=== PATIENT | female | born 1980 | race African-American/Black ===

== ENCOUNTER 2018-08-30 12:06 | Emergency (ER) | payer OTHER ==
[2018-08-30] MEDS ORDERED: MORPHINE 4 MG/ML SYR ONE (13:28)
[2018-08-30] MEDS ORDERED: NA CHLORIDE 0.9% 1,000 ML ONE ×2 (13:28→14:33)
[2018-08-30] MEDS ORDERED: ONDANSETRON 4 MG/2 ML VIAL ONE (13:28)
[2018-08-30 13:38] LABS: Absolute Lymphocytes (CBC) 0.6 K/uL (0.7-4.9); Absolute Monocytes 0.7 K/uL (0.1-1.3); Absolute Neutrophil 12.8 K/uL (1.8-8.0); Basophils % 0.8 % (0-1.3); Eosinophils % 0.1 % (0-4.4); Hematocrit 35.7 % (36.0-45.0); MPV 9.3 fL (7.6-11.3); Monocytes % 4.8 % (3.3-12.3); RBC Red Blood Cell Count 3.91 M/uL (3.86-4.86)
[2018-08-30 13:52] LABS: Albumin 3.5 g/dL (3.4-5.0); Bilirubin Direct 0.3 mg/dL (0-0.2); Bilirubin Total 0.9 mg/dL (0.2-1.0); Protein, Total 6.7 g/dL (6.4-8.2)
[2018-08-30 14:36] LABS: Platelet Estimate ADEQ
[2018-08-30 14:37] LABS: Blood Morphology Comment NOT SEEN (NOT SEEN)
--- NOTE | 2018-08-30 15:38 | RAD REPORT ---
EXAM DESCRIPTION: CT - Abdomen Pelvis W Contrast - 08/30/2018 3:20 pm CLINICAL HISTORY: Abdominal pain COMPARISON: none. TECHNIQUE: Computed axial tomography of the abdomen pelvis was obtained. 100 cc Isovue-300 was admin istered intravenously. Oral contrast was not requested which limits evaluation of bowel. All CT scans are performed using dose optimization technique as appropriate and may include automated exposure control or mA/KV adjustment according to patient size. FINDINGS: The liver, spleen, pancreas, adrenal and kidneys appear unremarkable. There is no evidence of diverticulitis. Small amount of ascites is present within the abdomen. Small to moderate amount of ascites is present within the pelvis. Evaluation of the appendix and bowel is limited secondary to the lack of oral contrast. IMPRESSION: Small to moderate amount of ascites. Pelvic ultrasound may be helpful for further evalua tion
--- NOTE | 2018-08-30 15:44 | ER ---
Nurse's Notes [facility] Name: Jose Ugarte Age: 38 yrs Sex: Female : 1980 Arrival Date: 08/30/2018 Time: 12:07 Bed 6 Private MD: Diagnosis: Endometriosis Presentation: 08/30 12:08 Presenting complaint: EMS states: called for a pt complaining of bodyaches, on scene, hj pt was in the floor, refused to get up due to body aches, hx of fibromyalgia, and weakness, generalized; denies fever and chills; denies N/V; BGL- 141; reports abd pain, cramps;. Transition of care: patient was not received from another setting of care. Onset of symptoms was August 30, 2018. Risk Assessment: Do you want to hurt yourself or someone else? Patient reports no desire to harm self or others. Initial Sepsis Screen: Does the patient meet any 2 criteria? No. Patient's initial sepsis screen is negative. Does the patient have a suspected source of infection? No. Patient's initial sepsis screen is negative. Care prior to arrival: None. 12:08 Method Of Arrival: EMS: [facility] 12:08 Acuity: RUPESH 3 hj Triage Assessment: 12:14 General: Appears in no apparent distress. uncomfortable, Behavior is calm, cooperative, hj appropriate for age. Pain: Complains of pain in body. 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 - Social history:: Smoking status: Patient/guardian denies using tobacco, Patient/guardian denies using alcohol, Patient/guardian denies using street drugs, The patient lives with family. - Ebola Screening: : Patient negative for fever greater than or equal to 101.5 degrees Fahrenheit, and additional compatible Ebola Virus Disease symptoms Patient denies exposure to infectious person Patient denies travel to an Ebola-affected area in the 21 days before illness onset. - Family history:: not pertinent, not pertinent. Screenin:14 Abuse screen: Denies threats or abuse. Denies injuries from another. Nutritional hj screening: No deficits noted. Tuberculosis screening: No symptoms or risk factors identified. Fall Risk None identified. Assessment: 13:27 General: Appears in no apparent distress. uncomfortable, Behavior is calm, cooperative, hj appropriate for age. Pain: Complains of pain in abdomen, body. Neuro: Level of Consciousness is awake, alert, obeys commands, Oriented to person, place, time, situation, Appropriate for age. Cardiovascular: Capillary refill < 3 seconds Patient's skin is warm and dry. Respiratory: Airway is patent Respiratory effort is even, unlabored, Respiratory pattern is regular, symmetrical. GI: No signs and/or symptoms were reported involving the gastrointestinal system. : No signs and/or symptoms were reported regarding the genitourinary system. EENT: No signs and/or symptoms were reported regarding the EENT system. Derm: No signs and/or symptoms reported regarding the dermatologic system. Musculoskeletal: No signs and/or symptoms reported regarding the musculoskeletal system. 14:37 Reassessment: Patient and/or family updated on plan of care and expected duration. Pain hj level reassessed. Patient is alert, oriented x 3, equal unlabored respirations, skin warm/dry/pink. awaiting serum pregs;. Vital Signs: 12:13 BP 104 / 77; Pulse 78; Resp 18; Temp 97.7(TE); Pulse Ox 100% on R/A; Weight 56.7 kg; hj Height 5 ft. 10 in. (177.80 cm); 13:30 BP 102 / 68; Pulse 74; Resp 18; Pulse Ox 100% on R/A; hj 14:16 BP 100 / 66; Pulse 75; Resp 18; Pulse Ox 100% on R/A; hj 16:03 BP 105 / 65; Pulse 74; Resp 18; Pulse Ox 100% on R/A; hj 12:13 Body Mass Index 17.94 (56.70 kg, 177.80 cm) ED Course: 12:07 Patient arrived in ED. hj 12:11 Triage completed. hj 12:14 Arm band placed on right wrist. hj 12:14 Patient has correct armband on for positive identification. Bed in low position. Call light in reach. Side rails up X 1. Adult w/ patient. 12:15 Twan Cain RN is Primary Nurse. hj 12:15 Maintain EMS IV. Dressing intact. Good blood return noted. Site clean \T\ dry. Gauge \T\ hj site: 20 g L AC;. 12:52 Chris Mendez MD is Attending Physician. ma2 14:26 Test, Serum Sent. hj 15:04 Radiology exam delayed due to test not completed at this time. vm2 15:[address] via wheelchair. vm2 15:21 CT Abd/Pelvis - W/Contrast In Process Unspecified. EDMS 16:02 No provider procedures requiring assistance completed. IV discontinued, intact, hj bleeding controlled, No redness/swelling at site. Pressure dressing applied. Administered Medications: 13:20 Drug: NS 0.9% 1000 ml Route: IV; Rate: 1 bolus; Site: left antecubital; hj 14:45 Follow up: IV Status: Completed infusion; IV Intake: 1000ml hj 13:20 Drug: morphine 4 mg Route: IVP; Site: left antecubital; hj 13:55 Follow up: Response: No adverse reaction; Pain is decreased hj 13:20 Drug: Zofran 4 mg Route: IVP; Site: left antecubital; hj 13:54 Follow up: Response: No adverse reaction hj 14:17 Drug: NS 0.9% 1000 ml Route: IV; Rate: 1 bolus; Site: left antecubital; hj 16:04 Follow up: IV Status: Completed infusion; IV Intake: 1000ml hj Intake: 14:45 IV: 1000ml; Total: 1000ml. hj 16:04 IV: 1000ml; Total: 2000ml. Outcome: 15:44 Discharge ordered by . ma2 16:02 Discharged to home ambulatory, with family. hj 16:02 Condition: stable 16:02 Discharge instructions given to patient, Instructed on discharge instructions, follow up and referral plans. medication usage, Demonstrated understanding of instructions, follow-up care, medications, Prescriptions given X 2. 16:05 Patient left the ED. Signatures: Dispatcher [employer] EDMI Twan Cain RN RN Chanel Carey [facility] Chris Mendez MD MD [email or web address]
--- NOTE | 2018-08-30 15:44 | EDPHYS ---
Physician Documentation [facility] Name: Jose Ugarte Age: 38 yrs Sex: Female : 1980 Arrival Date: 08/30/2018 Time: 12:07 Bed 6 Private MD: ED Physician Chris Mendez HPI: 08/30 13:19 This 38 yrs old Black Female presents to ER via EMS with complaints of bodyaches, ma2 General Weakness. 13:19 The patient presents with abdominal pain. Onset: The symptoms/episode began/occurred ma2 gradually, 1 day(s) ago. Associated signs and symptoms: Pertinent negatives: nausea and vomiting, blood in stools, constipation, headache, vaginal discharge, vomiting. Severity of pain: At its worst the pain was mild in the emergency department the pain is unchanged. The patient has not experienced similar symptoms in the past. 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 - Social history:: Smoking status: Patient/guardian denies using tobacco, Patient/guardian denies using alcohol, Patient/guardian denies using street drugs, The patient lives with family. - Ebola Screening: : Patient negative for fever greater than or equal to 101.5 degrees Fahrenheit, and additional compatible Ebola Virus Disease symptoms Patient denies exposure to infectious person Patient denies travel to an Ebola-affected area in the 21 days before illness onset. - Family history:: not pertinent, not pertinent. ROS: 13:19 Constitutional: Negative for fever, chills, and weight loss, Cardiovascular: Negative ma2 for chest pain, palpitations, and edema, Respiratory: Negative for shortness of breath, cough, wheezing, and pleuritic chest pain. 13:19 Abdomen/GI: Positive for abdominal pain, Negative for nausea and vomiting, vomiting, constipation, rectal bleeding, flatulence. 13:19 All other systems are negative. Exam: 13:19 Constitutional: This is a well developed, well nourished patient who is awake, alert, ma2 and in no acute distress. Chest/axilla: Normal chest wall appearance and motion. Nontender with no deformity. No lesions are appreciated. Cardiovascular: Regular rate and rhythm with a normal S1 and S2. No gallops, murmurs, or rubs. Normal PMI, no JVD. No pulse deficits. Respiratory: Lungs have equal breath sounds bilaterally, clear to auscultation and percussion. No rales, rhonchi or wheezes noted. No increased work of breathing, no retractions or nasal flaring. Abdomen/GI: Soft, non-tender, with normal bowel sounds. No distension or tympany. No guarding or rebound. No evidence of tenderness throughout. MS/ Extremity: Pulses equal, no cyanosis. Neurovascular intact. Full, normal range of motion. Neuro: Awake and alert, GCS 15, oriented to person, place, time, and situation. Cranial nerves II-XII grossly intact. Motor strength 5/5 in all extremities. Sensory grossly intact. Cerebellar exam normal. Normal gait. Vital Signs: 12:13 BP 104 / 77; Pulse 78; Resp 18; Temp 97.7(TE); Pulse Ox 100% on R/A; Weight 56.7 kg; hj Height 5 ft. 10 in. (177.80 cm); 13:30 BP 102 / 68; Pulse 74; Resp 18; Pulse Ox 100% on R/A; hj 14:16 BP 100 / 66; Pulse 75; Resp 18; Pulse Ox 100% on R/A; hj 16:03 BP 105 / 65; Pulse 74; Resp 18; Pulse Ox 100% on R/A; hj 12:13 Body Mass Index 17.94 (56.70 kg, 177.80 cm) MDM: 12:52 Patient medically screened. 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 14:12 Data reviewed: vital signs, nurses notes. Counseling: I had a detailed discussion with neno the patient and/or guardian regarding: the historical points, exam findings, and any diagnostic results supporting the discharge/admit diagnosis, the presence of at least one elevated blood pressure reading (>120/80) during this emergency department visit, the need for outpatient follow up. Response to treatment: the patient's symptoms have resolved after treatment. 08/30 13:01 Order name: Basic Metabolic Panel; Complete Time: 14:11 ma2 08/30 13:01 Order name: CBC with Diff; Complete Time: 15:22 ma2 08/30 13:01 Order name: Creatinine for Radiology; Complete Time: 14:11 ma2 08/30 13:01 Order name: Hepatic Function; Complete Time: 14:11 ma2 08/30 13:01 Order name: Lipase; Complete Time: 14:11 ma2 08/30 14:17 Order name: Test, Serum; Complete Time: 15:22 ma2 08/30 13:01 Order name: Urine Dipstick-Ancillary (obtain specimen); Complete Time: 16:02 ma2 08/30 13:01 Order name: IV Saline Lock; Complete Time: 13:13 ma2 08/30 14:17 Order name: CT Abd/Pelvis - W/Contrast; Complete Time: 15:43 ma2 08/30 14:37 Order name: Manual Differential; Complete Time: 15:22 EDMS 08/30 13:01 Order name: Labs collected and sent; Complete Time: 13:27 ma2 Administered Medications: 13:20 Drug: NS 0.9% 1000 ml Route: IV; Rate: 1 bolus; Site: left antecubital; hj 14:45 Follow up: IV Status: Completed infusion; IV Intake: 1000ml hj 13:20 Drug: morphine 4 mg Route: IVP; Site: left antecubital; hj 13:55 Follow up: Response: No adverse reaction; Pain is decreased hj 13:20 Drug: Zofran 4 mg Route: IVP; Site: left antecubital; hj 13:54 Follow up: Response: No adverse reaction hj 14:17 Drug: NS 0.9% 1000 ml Route: IV; Rate: 1 bolus; Site: left antecubital; hj 16:04 Follow up: IV Status: Completed infusion; IV Intake: 1000ml hj Disposition: 08/30/18 15:44 Discharged to Home. Impression: Endometriosis. - Condition is Stable. - Prescriptions for Tylenol- Codeine #3 300-30 mg Oral Tablet - take 2 tablet by ORAL route every 6 hours As needed; 30 tablet. Zofran 4 mg Oral Tablet - take 1 tablet by ORAL route every 12 hours As needed; 20 tablet. - Medication Reconciliation Form, Thank You Letter, Antibiotic Education, Prescription Opioid Use form. - Follow up: Private Physician; When: Tomorrow; Reason: Continuance of care. Signatures: Dispatcher [employer] EDMS Twan Cain RN RN hj Alzahri, Mohammad, MD MD ma2 Corrections: (The following items were deleted from the chart) 16:05 15:44 08/30/2018 15:44 Discharged to Home. Impression: Endometriosis. Condition is hj Stable. Prescriptions for Tylenol-Codeine #3 300-30 mg Oral Tablet - take 2 tablet by ORAL route every 6 hours As needed; 30 tablet, Zofran 4 mg Oral Tablet - take 1 tablet by ORAL route every 12 hours As needed; 20 tablet. and Forms are Medication Reconciliation Form, Thank You Letter, Antibiotic Education, Prescription Opioid Use. Follow up: Private Physician; When: Tomorrow; Reason: Continuance of care. ma2
== END 2018-08-30 16:05 | disposition home or self-care (01) ==
LOC: ER 12:06
DX: N80.9 Endometriosis, unspecified (principal); F41.9 Anxiety disorder, unspecified; F32.9 Major depressive disorder, single episode, unspecified
CPT/HCPCS: 36415; 74177; 80048; 80076; 83690; 84703; 85025; 99284; J2405; J7030; Q9967

== ENCOUNTER 2018-09-26 12:31 | Emergency (ER) | payer OTHER ==
--- OUTSIDE RECORDS SUMMARY | 2018-09-26 12:36 | XMS REPORT ---
:1980 [facility] Address [address] [place] [address] Dr. Sykes [address] [place] [id number] Care Team Providers Name Role Phone Unavailable Unavailable Unavailable Problems This patient has no known problems. Allergies, Adverse Reactions, Alerts This patient has no known allergies or adverse reactions. Medications This patient has no known medications. Encounters Start End Encounter Admission Attending Care Care Encounter Date/Time Date/Time Type Type Clinicians Facility Department ID 2018-09-13 2018-09-13 Outpatient [id number] 11:16:00 11:16:00
--- NOTE | 2018-09-26 12:58 | EDPHYS ---
Physician Documentation [facility] Name: Jose Ugarte Age: 38 yrs Sex: Female : 1980 Arrival Date: 09/26/2018 Time: 12:44 Bed 20 Private MD: ED Physician Chris Mendez HPI: 09/26 12:55 This 38 yrs old Black Female presents to ER via EMS with complaints of Abdominal Pain. ma2 12:55 The patient presents with abdominal pain. Onset: The symptoms/episode began/occurred ma2 gradually, 2 year(s) ago. Associated signs and symptoms: Pertinent negatives: nausea and vomiting, chest pain, constipation, vaginal discharge, vomiting. Severity of pain: At its worst the pain was moderate in the emergency department the pain is unchanged. The patient has experienced similar episodes in the past. 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 - Social history:: Smoking status: Patient uses tobacco products, smokes one-half pack cigarettes per day, Patient/guardian denies using alcohol, street drugs, The patient lives with family. - Ebola Screening: : Patient negative for fever greater than or equal to 101.5 degrees Fahrenheit, and additional compatible Ebola Virus Disease symptoms. - Family history:: not pertinent. ROS: 12:55 Constitutional: Negative for fever, chills, and weight loss, Cardiovascular: Negative ma2 for chest pain, palpitations, and edema, Respiratory: Negative for shortness of breath, cough, wheezing, and pleuritic chest pain. 12:55 Abdomen/GI: Positive for abdominal pain, Negative for nausea, abdominal distension. 12:55 All other systems are negative. Exam: 12:55 Constitutional: This is a well developed, well nourished patient who is awake, alert, ma2 and in no acute distress. Chest/axilla: Normal chest wall appearance and motion. Nontender with no deformity. No lesions are appreciated. Cardiovascular: Regular rate and rhythm with a normal S1 and S2. No gallops, murmurs, or rubs. Normal PMI, no JVD. No pulse deficits. Respiratory: Lungs have equal breath sounds bilaterally, clear to auscultation and percussion. No rales, rhonchi or wheezes noted. No increased work of breathing, no retractions or nasal flaring. Abdomen/GI: Soft, non-tender, with normal bowel sounds. No distension or tympany. No guarding or rebound. No evidence of tenderness throughout. MS/ Extremity: Pulses equal, no cyanosis. Neurovascular intact. Full, normal range of motion. Neuro: Awake and alert, GCS 15, oriented to person, place, time, and situation. Cranial nerves II-XII grossly intact. Motor strength 5/5 in all extremities. Sensory grossly intact. Cerebellar exam normal. Normal gait. Vital Signs: 12:37 BP 109 / 62; Pulse 62; Resp 17; Temp 98.4(O); Pulse Ox 100% on R/A; Weight 54.43 kg; rb1 Height 5 ft. 10 in. (177.80 cm); Pain 10/10; 13:35 BP 121 / 76; Pulse 65; Resp 16; Temp 98.1(O); Pulse Ox 99% ; Pain 10/10; rb1 14:30 BP 112 / 71; Pulse 65; Resp 15; Temp 98.2(O); Pulse Ox 100% on R/A; Pain 7/10; rb1 12:37 Body Mass Index 17.22 (54.43 kg, 177.80 cm) rb1 MDM: 12:44 Patient medically screened. ma2 12:55 Differential diagnosis: endometriosis, declined iv or blood work, or urine tests, she ma2 is been here before and gets this pain with periods every month. Data reviewed: vital signs, nurses notes. Counseling: I had a detailed discussion with the patient and/or guardian regarding: the historical points, exam findings, and any diagnostic results supporting the discharge/admit diagnosis, the presence of at least one elevated blood pressure reading (>120/80) during this emergency department visit, the need for outpatient follow up. Response to treatment: the patient's symptoms have resolved after treatment. Administered Medications: 13:50 Drug: Ativan 2 mg Route: IM; Site: right gluteus; rb1 14:30 Follow up: Response: No adverse reaction; Pain is decreased rb1 13:51 Drug: morphine 4 mg Route: IM; Site: left gluteus; rb1 14:30 Follow up: Response: No adverse reaction; Pain is decreased rb1 13:52 Not Given (cancelled by provider): Zofran 4 mg PO once; odt rb1 Disposition: 09/26/18 12:57 Discharged to Home. Impression: Anxiety disorder, unspecified, Endometriosis. - Condition is Stable. - Discharge Instructions: Endometriosis, Generalized Anxiety Disorder. - Medication Reconciliation Form, Thank You Letter, Antibiotic Education, Prescription Opioid Use form. - Follow up: Private Physician; When: Tomorrow; Reason: Continuance of care. Signatures: Ludmila Tripathi RN RN rb1 Alzahri, Mohammad, MD MD ma2 Corrections: (The following items were deleted from the chart) 12:54 12:37 Allergies: No Known Allergies; rb1 rb1 14:42 12:57 09/26/2018 12:57 Discharged to Home. Impression: Anxiety disorder, unspecified; rb1 Endometriosis. Condition is Stable. Forms are Medication Reconciliation Form, Thank You Letter, Antibiotic Education, Prescription Opioid Use. Follow up: Private Physician; When: Tomorrow; Reason: Continuance of care. ma2
--- NOTE | 2018-09-26 12:58 | ER ---
Nurse's Notes [facility] Name: Jose Ugarte Age: 38 yrs Sex: Female : 1980 Arrival Date: 09/26/2018 Time: 12:44 Bed 20 Private MD: Diagnosis: Anxiety disorder, unspecified;Endometriosis Presentation: 09/26 12:37 Presenting complaint: EMS states: Pt. had diagnostic surgery on her abdomen on September [id number] and was diagnosed with Stage IV Endometriosis. Pain is 10/10. Pt. took tylenol #3 at 0900 and Brilliant 0500. EMS administered Zofran 4 mg IM x 1 right deltoid and Toradol 60 mg IM x 1, right vastus lacteus. Two missed IV attempts on EMS. BP 120/80, P 60-70's. Started menstrual cycle yesterday. Home medications Clonopin and Control. Transition of care: patient was not received from another setting of care. Onset of symptoms was September 26, 2018. Risk Assessment: Do you want to hurt yourself or someone else? Patient reports no desire to harm self or others. Initial Sepsis Screen: Does the patient meet any 2 criteria? No. Patient's initial sepsis screen is negative. Initial Sepsis Screen: Does the patient have a suspected source of infection? No. Patient's initial sepsis screen is negative. Care prior to arrival: Medication(s) given: zofran 4 mg, Toradol 60 mg, Tylenol #3, and a Brilliant. 12:37 Method Of Arrival: EMS: [facility] rb1 12:37 Acuity: RUPESH 3 rb1 Triage Assessment: 12:37 GI: Abdomen is flat. rb1 12:37 General: Appears uncomfortable, slender, Behavior is anxious. Pain: Complains of pain rb1 in abdomen Pain currently is 10 out of 10 on a pain scale. 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 - Social history:: Smoking status: Patient uses tobacco products, smokes one-half pack cigarettes per day, Patient/guardian denies using alcohol, street drugs, The patient lives with family. - Ebola Screening: : Patient negative for fever greater than or equal to 101.5 degrees Fahrenheit, and additional compatible Ebola Virus Disease symptoms. - Family history:: not pertinent. Screenin:37 Abuse screen: Denies threats or abuse. Nutritional screening: No deficits noted. rb1 Tuberculosis screening: No symptoms or risk factors identified. Fall Risk None identified. Assessment: 12:37 General: See triage assessment. rb1 12:37 GI: Bowel sounds present X 4 quads. Abd is soft Abdomen is tender to palpation X 4 rb1 quads. 13:20 Reassessment: I tried to call [facility] to confirm what medications were given rb1 because the pt. reported receiving a third injection in the left arm but there was no answer. Provider notified. 13:30 Reassessment: Patient appears in no apparent distress at this time. Patient and/or rb1 family updated on plan of care and expected duration. Pain level reassessed. Patient is alert, oriented x 3, equal unlabored respirations, skin warm/dry/pink. 13:45 Reassessment: Received information regarding the third shot, it was Toradol 30 mg in rb1 the left arm. 13:53 Reassessment: Discharge pending due to shot time. rb1 14:30 Reassessment: Patient appears in no apparent distress at this time. Patient and/or rb1 family updated on plan of care and expected duration. Pain level reassessed. Patient is alert, oriented x 3, equal unlabored respirations, skin warm/dry/pink. Family at bedside. Vital Signs: 12:37 BP 109 / 62; Pulse 62; Resp 17; Temp 98.4(O); Pulse Ox 100% on R/A; Weight 54.43 kg; rb1 Height 5 ft. 10 in. (177.80 cm); Pain 10/10; 13:35 BP 121 / 76; Pulse 65; Resp 16; Temp 98.1(O); Pulse Ox 99% ; Pain 10/10; rb1 14:30 BP 112 / 71; Pulse 65; Resp 15; Temp 98.2(O); Pulse Ox 100% on R/A; Pain 7/10; rb1 12:37 Body Mass Index 17.22 (54.43 kg, 177.80 cm) rb1 ED Course: 12:37 Patient has correct armband on for positive identification. Bed in low position. Call rb1 light in reach. Side rails up X 1. Pulse ox on. NIBP on. Warm blanket given. 12:37 Arm band placed on right wrist. rb1 12:44 Patient arrived in ED. rb1 12:44 Chris Mendez MD is Attending Physician. ma2 12:51 Triage completed. rb1 13:14 Ludmila Tripathi, RN is Primary Nurse. rb1 14:30 No provider procedures requiring assistance completed. Patient did not have IV access rb1 during this emergency room visit. Administered Medications: 13:50 Drug: Ativan 2 mg Route: IM; Site: right gluteus; rb1 14:30 Follow up: Response: No adverse reaction; Pain is decreased rb1 13:51 Drug: morphine 4 mg Route: IM; Site: left gluteus; rb1 14:30 Follow up: Response: No adverse reaction; Pain is decreased rb1 13:52 Not Given (cancelled by provider): Zofran 4 mg PO once; odt rb1 Outcome: 12:57 Discharge ordered by . ma2 14:42 Patient left the ED. rb1 14:42 Discharged to home ambulatory, with family. rb1 14:42 Condition: stable 14:42 Discharge instructions given to patient, Instructed on discharge instructions, follow up and referral plans. Demonstrated understanding of instructions, follow-up care. Signatures: Ludmila Tripathi RN RN [facility] Chris Mendez MD MD ma2 Corrections: (The following items were deleted from the chart) 12:54 12:37 Allergies: No Known Allergies; rb1 rb1
[2018-09-26] MEDS ORDERED: LORazepam 2 MG/ML VIAL ONE (13:32)
[2018-09-26] MEDS ORDERED: MORPHINE 4 MG/ML SYR ONE (13:33)
[2018-09-26] MEDS ORDERED: ONDANSETRON 4 MG (ODT) TAB ONE (13:33)
== END 2018-09-26 14:42 | disposition home or self-care (01) ==
LOC: ER 12:31
DX: N80.9 Endometriosis, unspecified (principal); F41.9 Anxiety disorder, unspecified; F32.9 Major depressive disorder, single episode, unspecified; F17.210 Nicotine dependence, cigarettes, uncomplicated
CPT/HCPCS: 96372; 99284

== ENCOUNTER 2018-09-27 15:26 | Emergency (ER) | payer OTHER ==
[2018-09-27] MEDS ORDERED: NA CHLORIDE 0.9% 1,000 ML ONE (16:40)
[2018-09-27] MEDS ORDERED: ONDANSETRON 4 MG/2 ML VIAL ONE (16:40)
[2018-09-27] MEDS ORDERED: ACETAMINOPHEN 500 MG TAB ONE (16:40)
[2018-09-27] MEDS ORDERED: MORPHINE 4 MG/ML SYR ONE ×2 (16:40→17:13)
[2018-09-27 16:53] LABS: Absolute Lymphocytes (CBC) 1.1 K/uL (0.7-4.9); Absolute Monocytes 0.8 K/uL (0.1-1.3); Absolute Neutrophil 10.9 K/uL (1.8-8.0); Basophils % 0.3 % (0-1.3); Hematocrit 38.9 % (36.0-45.0); Lymphocytes % 8.5 % (15.3-44.8); MPV 9.3 fL (7.6-11.3); Monocytes % 5.9 % (3.3-12.3); RBC Red Blood Cell Count 4.25 M/uL (3.86-4.86)
[2018-09-27 17:14] LABS: ALT/SGPT 10 U/L (12-78); AST/SGOT 14 U/L (15-37); Albumin 3.1 g/dL (3.4-5.0); Alkaline Phosphatase 57 U/L (45-117); BUN Blood Urea Nitrogen 12 mg/dL (7-18); Bicarbonate 25 mmol/L (21-32); Bilirubin Direct 0.2 mg/dL (0-0.2); Bilirubin Total 0.8 mg/dL (0.2-1.0); Glucose Level 107 mg/dL (74-106); Lipase 116 U/L (73-393); Potassium 3.5 mmol/L (3.5-5.1); Protein, Total 7.1 g/dL (6.4-8.2); Sodium Level 137 mmol/L (136-145)
[2018-09-27 17:21] LABS: Blood Morphology Comment NOT SEEN (NOT SEEN); Platelet Estimate ADEQ; Urine White Blood Cell Casts OK
[2018-09-27 17:46] LABS: Urine Blood 3+ (NEG); Urine Glucose NEGATIVE (NEG); Urine Protein 2+ (NEG); Urine Specific Gravity 1.025 (1.005-1.030)
--- NOTE | 2018-09-27 18:58 | EDPHYS ---
Physician Documentation [facility] Name: Jose Ugarte Age: 38 yrs Sex: Female : 1980 Arrival Date: 09/27/2018 Time: 15:43 Bed 27 Private MD: ED Physician Berny Byrnes HPI: 09/27 17:41 This 38 yrs old Black Female presents to ER via EMS with complaints of Abdominal Pain. pm1 17:41 The patient presents with abdominal pain that is diffuse. Onset: The symptoms/episode pm1 began/occurred 2 years of abdominal pain. Worse the past few days. The symptoms do not radiate. Associated signs and symptoms: Pertinent positives: fever, Burning with urination, Pertinent negatives: chest pain, headache, shortness of breath, vaginal discharge. The symptoms are described as burning. Modifying factors: The symptoms are alleviated by nothing, the symptoms are aggravated by urinating. Severity of pain: in the emergency department the pain is actually worse. The patient has experienced similar episodes in the past, multiple times, chronically. The patient has been recently seen at the [facility], yesterday, same complaint. 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 - Social history:: Smoking status: Patient uses tobacco products. - Ebola Screening: : Patient negative for fever greater than or equal to 101.5 degrees Fahrenheit, and additional compatible Ebola Virus Disease symptoms Patient denies exposure to infectious person Patient denies travel to an Ebola-affected area in the 21 days before illness onset No symptoms or risks identified at this time. ROS: 17:41 Constitutional: Negative for fever, chills, and weight loss, Eyes: Negative for injury, pm1 pain, redness, and discharge, ENT: Negative for injury, pain, and discharge, Neck: Negative for injury, pain, and swelling, Cardiovascular: Negative for chest pain, palpitations, and edema, Respiratory: Negative for shortness of breath, cough, wheezing, and pleuritic chest pain. 17:41 Back: Negative for injury and pain. 17:41 MS/Extremity: Negative for injury and deformity, Skin: Negative for injury, rash, and discoloration, Neuro: Negative for headache, weakness, numbness, tingling, and seizure. 17:41 Abdomen/GI: Positive for abdominal pain, Negative for nausea, vomiting, and diarrhea. 17:41 : Positive for burning with urination. Exam: 17:41 Constitutional: This is a well developed, well nourished patient who is awake, alert, pm1 and in no acute distress. Head/Face: Normocephalic, atraumatic. Eyes: Pupils equal round and reactive to light, extra-ocular motions intact. Lids and lashes normal. Conjunctiva and sclera are non-icteric and not injected. Cornea within normal limits. Periorbital areas with no swelling, redness, or edema. ENT: Nares patent. No nasal discharge, no septal abnormalities noted. Tympanic membranes are normal and external auditory canals are clear. Oropharynx with no redness, swelling, or masses, exudates, or evidence of obstruction, uvula midline. Mucous membranes moist. Neck: Trachea midline, no thyromegaly or masses palpated, and no cervical lymphadenopathy. Supple, full range of motion without nuchal rigidity, or vertebral point tenderness. No Meningismus. Chest/axilla: Normal chest wall appearance and motion. Nontender with no deformity. No lesions are appreciated. Cardiovascular: Regular rate and rhythm with a normal S1 and S2. No gallops, murmurs, or rubs. Normal PMI, no JVD. No pulse deficits. Respiratory: Lungs have equal breath sounds bilaterally, clear to auscultation and percussion. No rales, rhonchi or wheezes noted. No increased work of breathing, no retractions or nasal flaring. 17:41 Back: No spinal tenderness. No costovertebral tenderness. Full range of motion. Skin: Warm, dry with normal turgor. Normal color with no rashes, no lesions, and no evidence of cellulitis. MS/ Extremity: Pulses equal, no cyanosis. Neurovascular intact. Full, normal range of motion. 17:41 Abdomen/GI: Inspection: abdomen appears normal, Bowel sounds: normal, Palpation: soft, mild abdominal tenderness, in the abdomen diffusely, mass, is not appreciated, rebound tenderness, is not appreciated. 17:41 Neuro: Orientation: is normal, Motor: is normal, moves all fours. Vital Signs: 15:47 BP 122 / 83 RA (auto/reg); Pulse 95; Temp 101.1; Pulse Ox 99% ; Pain 10/10; jp3 16:30 BP 131 / 90; Pulse 94; Resp 16; Pulse Ox 99% ; rv 17:00 BP 124 / 98; Pulse 102; Resp 17; Temp 99.1; Pulse Ox 100% ; rv 17:20 Temp 99.1(O); rv 18:00 BP 126 / 88; Pulse 96; Resp 18; Pulse Ox 99% ; rv 19:00 BP 115 / 81; Pulse 91; Resp 18; Pulse Ox 98% ; rv 19:45 BP 121 / 90; Pulse 97; Resp 15; Temp 99; Pulse Ox 99% ; rv MDM: 16:05 Patient medically screened. [facility] 17:45 Data reviewed: vital signs. Data interpreted: Pulse oximetry: on room air is 100 %. pm1 Interpretation: normal. 18:55 Counseling: I had a detailed discussion with the patient and/or guardian regarding: the pm1 historical points, exam findings, and any diagnostic results supporting the discharge/admit diagnosis, lab results, radiology results, the need for outpatient follow up, to return to the emergency department if symptoms worsen or persist or if there are any questions or concerns that arise at home. 09/27 16:12 Order name: Basic Metabolic Panel; Complete Time: 17:40 pm1 09/27 16:12 Order name: CBC with Diff; Complete Time: 17:40 pm1 09/27 16:12 Order name: Creatinine for Radiology; Complete Time: 17:45 pm1 09/27 16:12 Order name: Hepatic Function; Complete Time: 17:40 pm1 09/27 16:12 Order name: Lipase; Complete Time: 17:40 pm1 09/27 16:12 Order name: Urine Microscopic Only pm09/27 16:12 Order name: CT Abd/Pelvis - W/Contrast: IV contrast only pm09/27 17:02 Order name: CBC Smear Scan; Complete Time: 17:40 EDMS 09/27 17:13 Order name: Urine Dipstick--Ancillary (enter results) 09/27 17:13 Order name: Urine --Ancillary (enter results) 09/27 17:15 Order name: Urine Dipstick-Ancillary; Complete Time: 17:48 EDDC 09/27 17:15 Order name: Urine --Ancillary; Complete Time: 17:48 EDDC 09/27 19:16 Order name: Urine Culture [facility] 09/27 16:12 Order name: IV Saline Lock; Complete Time: 17:22 pm1 09/27 16:12 Order name: Labs collected and sent; Complete Time: 17:22 pm1 09/27 16:12 Order name: Urine Dipstick-Ancillary (obtain specimen); Complete Time: 17:22 pm1 09/27 16:12 Order name: Urine Test (obtain specimen); Complete Time: 17:31 pm1 Administered Medications: 16:15 Drug: Tylenol 1000 mg Route: PO; rv 17:20 Follow up: Temp 99.1 Oral; Response: Temperature is decreased rv 16:28 Drug: Zofran 4 mg Route: IVP; Site: left forearm; rv 17:21 Follow up: Response: No adverse reaction rv 16:30 Drug: NS 0.9% 1000 ml Route: IV; Rate: 1000 ml; Site: left forearm; rv 17:21 Follow up: IV Status: Completed infusion; IV Intake: 1000ml rv 16:30 Drug: morphine 4 mg Route: IVP; Site: left forearm; rv 17:02 Follow up: Response: Pain is unchanged, physician notified rv 17:10 Drug: morphine 4 mg Route: IVP; Site: left forearm; rv 19:54 Follow up: Response: Pain is unchanged, physician notified rv 19:20 Drug: Rocephin 1 grams Route: IV; Rate: calculated rate; Site: left forearm; rv 19:54 Follow up: IV Status: Completed infusion rv 19:30 Drug: fentaNYL (PF) 25 mcg Route: IVP; Site: left forearm; rv 19:55 Follow up: Response: Medication administered at discharge. rv Disposition: 09/28 07:08 Co-signature as Attending Physician, Berny HERNANDEZ I agree with the assessment and gomez plan of care. Disposition: 09/27/18 18:57 Discharged to Home. Impression: Unspecified abdominal pain, Urinary tract infection, site not specified. - Condition is Stable. - Discharge Instructions: Abdominal Pain, Adult, Urinary Tract Infection, Adult. - Prescriptions for Bactrim DS 800- 160 mg Oral Tablet - take 1 tablet by ORAL route every 12 hours for 10 days; 20 tablet. Tylenol- Codeine #3 300-30 mg Oral Tablet - take 2 tablets by ORAL route every 6 hours As needed; 20 tablet. - Medication Reconciliation Form, Thank You Letter, Antibiotic Education, Prescription Opioid Use, Work release form, Family Work Release form. - Follow up: Emergency Department; When: As needed; Reason: Worsening of condition. Follow up: Private Physician; When: 2 - 3 days; Reason: Recheck today's complaints, Continuance of care, Re-evaluation by your physician. - Problem is new. - Symptoms have improved. Signatures: Dispatcher [employer] EDMS Berny Byrnes, Rich Martínez MD, cha, NP DIRECTOR CLINICAL PHARMACOLOGY pm1 Freddy Calderon RN RN rv Brissa Duncan RN RN ls4 Corrections: (The following items were deleted from the chart) 09/27 19:59 18:57 09/27/2018 18:57 Discharged to Home. Impression: Unspecified abdominal pain; rv Urinary tract infection, site not specified. Condition is Stable. Forms are Medication Reconciliation Form, Thank You Letter, Antibiotic Education, Prescription Opioid Use. Follow up: Emergency Department; When: As needed; Reason: Worsening of condition. Follow up: Private Physician; When: 2 - 3 days; Reason: Recheck today's complaints, Continuance of care, Re-evaluation by your physician. Problem is new. Symptoms have improved. pm1
--- NOTE | 2018-09-27 18:58 | ER ---
Nurse's Notes [facility] Name: Jose Ugarte Age: 38 yrs Sex: Female : 1980 Arrival Date: 09/27/2018 Time: 15:43 Bed 27 Private MD: Diagnosis: Unspecified abdominal pain;Urinary tract infection, site not specified Presentation: 09/27 15:52 Presenting complaint: EMS states: Pt has abdominal pain, 10/10 and nausea. has been ls4 seen a few times over the last few days for same. Pt is febrile. Transition of care: patient was not received from another setting of care. Onset of symptoms was September 25, 2018 at 08:00. Risk Assessment: Do you want to hurt yourself or someone else? Patient reports no desire to harm self or others. Initial Sepsis Screen: Does the patient meet any 2 criteria? No. Patient's initial sepsis screen is negative. Does the patient have a suspected source of infection? No. Patient's initial sepsis screen is negative. Care prior to arrival: Medication(s) given: Normal saline infusion, 250 IV initiated. 20 GA. 15:52 Method Of Arrival: EMS: [facility] 4 15:52 Acuity: RUPESH 3 ls4 Triage Assessment: 15:56 General: Appears uncomfortable, Behavior is calm, cooperative, flat. 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 - Social history:: Smoking status: Patient uses tobacco products. - Ebola Screening: : Patient negative for fever greater than or equal to 101.5 degrees Fahrenheit, and additional compatible Ebola Virus Disease symptoms Patient denies exposure to infectious person Patient denies travel to an Ebola-affected area in the 21 days before illness onset No symptoms or risks identified at this time. Screenin:51 Abuse screen: Denies threats or abuse. Denies injuries from another. Nutritional rv screening: No deficits noted. Tuberculosis screening: No symptoms or risk factors identified. Fall Risk None identified. Assessment: 16:30 General: Appears in no apparent distress. uncomfortable, Behavior is cooperative, rv agitated. Pain: Complains of pain in abdomen Pain currently is 10 out of 10 on a pain scale. 16:30 Pain: Quality of pain is described as crampy. Neuro: Cardiovascular: Patient's skin is rv warm and dry. Respiratory: Airway is patent. GI: Bowel sounds present X 4 quads. Abd is soft and non tender X 4 quads. : No signs and/or symptoms were reported regarding the genitourinary system. EENT: No signs and/or symptoms were reported regarding the EENT system. Derm: Skin is intact. Musculoskeletal: No signs and/or symptoms reported regarding the musculoskeletal system. 17:00 Reassessment: Patient appears in no apparent distress at this time. No changes from rv previously documented assessment. Patient and/or family updated on plan of care and expected duration. Pain level reassessed. Patient is alert, oriented x 3, equal unlabored respirations, skin warm/dry/pink. REFERRED TO KRISTY CARNES ABOUT THE PAIN. GIVEN ANOTHER DOSE OF MORPHINE. Vital Signs: 15:47 BP 122 / 83 RA (auto/reg); Pulse 95; Temp 101.1; Pulse Ox 99% ; Pain 10/10; jp3 16:30 BP 131 / 90; Pulse 94; Resp 16; Pulse Ox 99% ; rv 17:00 BP 124 / 98; Pulse 102; Resp 17; Temp 99.1; Pulse Ox 100% ; rv 17:20 Temp 99.1(O); rv 18:00 BP 126 / 88; Pulse 96; Resp 18; Pulse Ox 99% ; rv 19:00 BP 115 / 81; Pulse 91; Resp 18; Pulse Ox 98% ; rv 19:45 BP 121 / 90; Pulse 97; Resp 15; Temp 99; Pulse Ox 99% ; rv ED Course: 15:43 Patient arrived in ED. ls4 15:55 Triage completed. ls4 16:03 Rich Packer NP is PHCP. pm1 16:03 Berny Byrnes MD is Attending Physician. pm1 16:30 Maintain EMS IV. Dressing intact. Good blood return noted. Site clean \T\ dry. Gauge \T\ rv site: g20 LEFT FOREARM. 16:47 Kvng, Freddy, RN is Primary Nurse. rv 16:51 Patient has correct armband on for positive identification. Bed in low position. Call rv light in reach. Side rails up X 1. Adult w/ patient. Pulse ox on. NIBP on. 16:52 Patient placed in an exam room, on a stretcher, on pulse oximetry, Patient notified of rv wait time. 17:02 Radiology exam delayed due to lab results not completed at this time. (BUN/Creatinine). nj 18:00 CT Abd/Pelvis - W/Contrast: IV contrast only In Process Unspecified. EDMS 19:58 No provider procedures requiring assistance completed. IV discontinued, intact, rv bleeding controlled, No redness/swelling at site. Pressure dressing applied. Administered Medications: 16:15 Drug: Tylenol 1000 mg Route: PO; rv 17:20 Follow up: Temp 99.1 Oral; Response: Temperature is decreased rv 16:28 Drug: Zofran 4 mg Route: IVP; Site: left forearm; rv 17:21 Follow up: Response: No adverse reaction rv 16:30 Drug: NS 0.9% 1000 ml Route: IV; Rate: 1000 ml; Site: left forearm; rv 17:21 Follow up: IV Status: Completed infusion; IV Intake: 1000ml rv 16:30 Drug: morphine 4 mg Route: IVP; Site: left forearm; rv 17:02 Follow up: Response: Pain is unchanged, physician notified rv 17:10 Drug: morphine 4 mg Route: IVP; Site: left forearm; rv 19:54 Follow up: Response: Pain is unchanged, physician notified rv 19:20 Drug: Rocephin 1 grams Route: IV; Rate: calculated rate; Site: left forearm; rv 19:54 Follow up: IV Status: Completed infusion rv 19:30 Drug: fentaNYL (PF) 25 mcg Route: IVP; Site: left forearm; rv 19:55 Follow up: Response: Medication administered at discharge. rv Intake: 17:21 IV: 1000ml; Total: 1000ml. rv Outcome: 18:57 Discharge ordered by MD. pm1 19:58 Discharged to home via wheelchair. rv 19:58 Condition: good 19:58 Discharge instructions given to patient, family, Instructed on discharge instructions, follow up and referral plans. medication usage, Demonstrated understanding of instructions, follow-up care, medications, Prescriptions given X 2. 19:59 Patient left the ED. rv Signatures: Dispatcher [employer] EDMS Rich Packer NP TELEVISION ENGINEERING TEACHER pm1 Claude Monzon Ronaldo RN RN rv Gordon Keyes jp3 Brissa Duncan RN RN ls4
[2018-09-27 19:13] LABS: Urine Bacteria 20-50 /HPF (<20); Urine RBC >50 /HPF (NONE SEEN)
[2018-09-27 19:14] LABS: Urine Amorphous Sediment 3+ /HPF (NONE SEEN); Urine Culture Reflex Order REFLEXED; Urine Mucus 3+ /HPF (NONE SEEN)
[2018-09-27] MEDS ORDERED: CEFTRIAXONE/SWI 1gm 1 GM/10 ML SYR ONE (19:32)
[2018-09-27] MEDS ORDERED: FENTANYL CITR 100 MCG/2 ML ONE (19:43)
--- OUTSIDE RECORDS SUMMARY | 2018-09-28 11:41 | XMS REPORT ---
:1980 Author Organization [facility] Address [address] [place] [address] Dr. Sykes [address] [place] [id number] Care Team Providers Name Role Phone Unavailable Unavailable Unavailable Problems This patient has no known problems. Allergies, Adverse Reactions, Alerts This patient has no known allergies or adverse reactions. Medications This patient has no known medications. Encounters Start End Encounter Admission Attending Care Care Encounter Date/Time Date/Time Type Type Clinicians Facility Department ID 2018-09-13 2018-09-13 Outpatient BL [id number] 11:16:00 11:16:00
--- NOTE | 2018-09-28 12:51 | RAD REPORT ---
EXAM DESCRIPTION: CT - Abdomen Pelvis W Contrast - 09/28/2018 11:36 am CLINICAL HISTORY: Abdominal pain . COMPARISON: August 30, 2018 TECHNIQUE: Computed axial tomography of the abdomen pelvis was obtained. 100 cc Isovue-300 was admin istered intravenously. Oral contrast was not requested which limits evaluation of bowel. All CT scans are performed using dose optimization technique as appropriate and may include automated exposure control or mA/KV adjustment according to patient size. FINDINGS: The liver, spleen, pancreas, adrenal and kidneys appear unremarkable. There is no evidence of diverticulitis. A small amount of ascites is present within the abdomen. Small to moderate amount of ascites is prese nt within the pelvis. The endometrial stripe is thickened. The cecum measures 7 centimeters. Transverse colon measures 5.5 millimeters. This may indicate an ile us IMPRESSION: Small to moderate amount ascites. This may be secondary to inflammation. Prominent endometrial stripe. Pelvic ultrasound recommended
== END 2018-09-27 19:59 | disposition home or self-care (01) ==
LOC: ER 15:26
DX: N39.0 Urinary tract infection, site not specified (principal); Z91.040 Latex allergy status; F41.8 Other specified anxiety disorders; F32.9 Major depressive disorder, single episode, unspecified
CPT/HCPCS: 36415; 74177; 80048; 80076; 81003; 81015; 81025; 83690; 85025; 87086; 87088; 96361; 96365; 96375; 99284; J0696; J2405; J3010; J7030; Q9967

== ENCOUNTER 2018-11-26 15:41 | Emergency (ER) | payer OTHER ==
--- OUTSIDE RECORDS SUMMARY | 2018-11-26 15:43 | XMS REPORT ---
:1980 Author [facility] Address [address] [place] [address] Dr. Sykes [address] [place] [id number] Care Team Providers Name Role Phone Unavailable Unavailable Unavailable Problems This patient has no known problems. Allergies, Adverse Reactions, Alerts This patient has no known allergies or adverse reactions. Medications This patient has no known medications. Encounters Start End Encounter Admission Attending Care Care Encounter Date/Time Date/Time Type Type Clinicians Facility Department ID 2018-09-13 2018-09-13 Outpatient [facility] [id number] 11:16:00 11:16:00
[2018-11-26 16:09] LABS: Absolute Lymphocytes (CBC) 2.6 K/uL (0.7-4.9); Basophils % 1.6 % (0-1.3); Hematocrit 42.7 % (36.0-45.0); Lymphocytes % 37.9 % (15.3-44.8); MPV 8.6 fL (7.6-11.3); RBC Red Blood Cell Count 4.62 M/uL (3.86-4.86)
[2018-11-26 16:24] LABS: Bilirubin Direct 0.2 mg/dL (0-0.2); Bilirubin Total 0.7 mg/dL (0.2-1.0); Potassium 3.7 mmol/L (3.5-5.1); Protein, Total 8.1 g/dL (6.4-8.2)
[2018-11-26] MEDS ORDERED: FENTANYL CITR 100 MCG/2 ML ONE ×2 (16:29→17:46)
[2018-11-26] MEDS ORDERED: NA CHLORIDE 0.9% 1,000 ML ONE (16:30)
[2018-11-26] MEDS ORDERED: ONDANSETRON 4 MG/2 ML VIAL ONE (16:30)
[2018-11-26 16:41] LABS: Urine Blood NEGATIVE (NEG); Urine Glucose NEGATIVE (NEG); Urine Protein NEGATIVE (NEG)
--- NOTE | 2018-11-26 16:55 | RAD REPORT ---
EXAM DESCRIPTION: CT - Stone Protocol - 11/26/2018 4:37 pm CLINICAL HISTORY: Left flank pain COMPARISON: CT imaging August 2018 TECHNIQUE: Axial 5 mm thick images were obtained without oral or IV contrast. The [id number] span s the entirety of the system including uppermost abdomen and lung bases. All CT scans are performed using dose optimization technique as appropriate and may include automated exposure control or mA/KV adjustment according to patient size. FINDINGS: No hydronephrosis is present and no obstructing ureteral calculi. No suspicious renal mass es. Isodense masses and pyelonephritis are not excluded on a stone protocol CT scan. Urinary bladder is contracted limiting assessment. No bladder calculus suspected. No adrenal abnormality seen. Uterus and right ovary are grossly normal. There is a small 18 mm cyst in the right ovary. Uterine de tail is limited. In the left adnexa a 5.2 centimeter oval cyst is present. No calcification, fat or o ther suspicious component. This is most likely an ovarian cyst but could represent a cystadenoma and needs ongoing monitoring. Imaged portions of the liver, spleen and pancreas show no suspicious findings on non-contrast imaging . No gallbladder or biliary tree abnormality identified. No suspicious bowel findings. Appendix is not clearly defined but appears to be normal. No hernia, mass or bulky lymphadenopathy noted. No free air, free fluid or inflammatory stranding. No significant bony abnormality. Overall exam is limited. The absence of oral and IV contrast along with the paucity intraabdominal fa t results in numerous abutting isodense structures. IMPRESSION: Approximately 5.2 centimeter left adnexal cyst most likely ovarian in origin. This is li bang a large functional cyst. Cystadenoma is not excluded. This is probably the source of patient aleksandra n and can be monitored on subsequent imaging. No hydronephrosis or obstructing calculus seen. Isodense masses and pyelonephritis are not excluded. Exam is limited due to the absence of oral and IV contrast. The paucity of abdominal fat creates nume christ isodense structures obscuring tissue margins. This also limits assessment.
[2018-11-26 17:01] LABS: Urine Bacteria <20 /HPF (<20); Urine RBC <5 /HPF (NONE SEEN)
[2018-11-26 17:02] LABS: Urine Culture Reflex Order NOT NEEDED
[2018-11-26] MEDS ORDERED: KETOROLAC 30 MG/ML INJ ONE (17:26)
[2018-11-26] MEDS ORDERED: MORPHINE 4 MG/ML SYR ONE (18:06)
[2018-11-26] MEDS ORDERED: LORazepam 2 MG/ML VIAL ONE (18:41)
--- NOTE | 2018-11-26 18:52 | EDPHYS ---
Physician Documentation [facility] Name: Jose Ugarte Age: 38 yrs Sex: Female : 1980 Arrival Date: 11/26/2018 Time: 15:43 Bed 25 Private MD: ED Physician Berny Byrnes HPI: 11/26 16:10 This 38 yrs old Black Female presents to ER via Wheelchair with complaints of Abdominal cp Pain, Back Pain, Vomiting. 16:10 The patient presents with abdominal pain in the left upper quadrant, in the left lower cp quadrant. Onset: The symptoms/episode began/occurred this morning. The symptoms radiate to left back. Associated signs and symptoms: Pertinent positives: nausea and vomiting, Pertinent negatives: blood in stools, constipation, diarrhea, dysuria, fever, vaginal discharge, vomiting blood. The symptoms are described as constant. Modifying factors: the symptoms are aggravated by movement, pressure. Severity of pain: in the emergency department the pain is unchanged despite home interventions. Historical: - Allergies: 15:46 Latex, Natural Rubber; sv - PMHx: 15:46 Anxiety; Depression; Fibromyalgia; endometriosis; sv - PSHx: 15:46 Abdomen; sv - Immunization history:: Adult Immunizations up to date. - Social history:: Smoking status: Patient/guardian denies using tobacco. - Ebola Screening: : No symptoms or risks identified at this time. ROS: 16:20 Constitutional: Negative for body aches, chills, fever, poor PO intake. cp 16:20 Eyes: Negative for injury, pain, redness, and discharge. cp 16:20 ENT: Negative for drainage from ear(s), ear pain, sore throat, difficulty swallowing, difficulty handling secretions. 16:20 Cardiovascular: Negative for chest pain. 16:20 Respiratory: Negative for cough, shortness of breath, wheezing. 16:20 Abdomen/GI: Positive for nausea, vomiting, Negative for abdominal pain, diarrhea, constipation, hematemesis, black/tarry stool, rectal bleeding. 16:20 Back: Positive for pain at rest, pain with movement, of the left low back and left mid back. 16:20 : Negative for urinary symptoms, vaginal bleeding, vaginal discharge. 16:20 Neuro: Negative for altered mental status, headache, weakness. 16:20 All other systems are negative. Exam: 16:25 Constitutional: The patient appears in no acute distress, alert, awake, non-toxic, well cp developed, well nourished, uncomfortable. 16:25 Head/Face: Normocephalic, atraumatic. cp 16:25 Eyes: Periorbital structures: appear normal, Conjunctiva: normal, no exudate, no injection, Sclera: no appreciated abnormality, Lids and lashes: appear normal, bilaterally. 16:25 ENT: External ear(s): are unremarkable, Nose: is normal, Mouth: Lips: moist, Oral mucosa: pink and intact, moist, Posterior pharynx: is normal, airway is patent, no erythema, no exudate. 16:25 Chest/axilla: Inspection: normal, Palpation: is normal, no crepitus, no tenderness. 16:25 Cardiovascular: Rate: normal, Rhythm: regular. 16:25 Respiratory: the patient does not display signs of respiratory distress, Respirations: normal, no use of accessory muscles, no retractions, no splinting, no tachypnea, labored breathing, is not present, Breath sounds: are clear throughout, no decreased breath sounds, no stridor, no wheezing. 16:25 Abdomen/GI: Inspection: abdomen appears normal, Bowel sounds: active, all quadrants, Palpation: soft, in all quadrants, severe abdominal tenderness, in the left adnexa, rebound tenderness, is not appreciated, voluntary guarding. 16:25 Back: pain, that is moderate, of the left low back and left mid back, ROM is painful, with all movement. 16:25 Skin: no rash present. Vital Signs: 15:46 BP 111 / 75; Pulse 87; Resp 24; Temp 97.9; Pulse Ox 99% ; Weight 54.43 kg; Height 5 ft. sv 10 in. (177.80 cm); 17:02 BP 116 / 86; Pulse 74; Resp 16; Pulse Ox 98% on R/A; la1 17:56 BP 119 / 68; Pulse 76; Resp 16; Pulse Ox 98% on R/A; la1 19:06 BP 117 / 61; Pulse 76; Resp 18; Pulse Ox 98% on R/A; la1 15:46 Body Mass Index 17.22 (54.43 kg, 177.80 cm) sv MDM: 15:53 Patient medically screened. 18:51 Data reviewed: vital signs, nurses notes. Counseling: I had a detailed discussion with [facility] the patient and/or guardian regarding: the historical points, exam findings, and any diagnostic results supporting the discharge/admit diagnosis, lab results, radiology results, the need for outpatient follow up, to return to the emergency department if symptoms worsen or persist or if there are any questions or concerns that arise at home. 20:22 ED course: Imaging studies reveal complex cyst. Pain appears to be due to cyst along jmm with underlying endometriosis. Patient prescribed flagyl for BV. Patient advised to follow up with ob and otherwise given strict return precautions. patient understood and agrees with the plan of care. . 11/26 15:54 Order name: Basic Metabolic Panel; Complete Time: 16:59 [facility] 11/26 16:56 Interpretation: Normal except: GFR 82. 11/26 15:54 Order name: CBC with Diff; Complete Time: 16:11 [facility] 11/26 15:54 Order name: Creatinine for Radiology; Complete Time: 16:59 [facility] 11/26 15:54 Order name: Hepatic Function; Complete Time: 16:59 [facility] 11/26 15:54 Order name: Lipase; Complete Time: 16:59 [facility] 11/26 16:10 Order name: Urine Microscopic Only; Complete Time: 18:04 11/26 16:11 Order name: CT Stone Protocol; Complete Time: 16:59 11/26 16:25 Order name: Urine Dipstick--Ancillary (enter results) 11/26 16:25 Order name: Urine --Ancillary (enter results) 11/26 16:27 Order name: Urine Dipstick-Ancillary; Complete Time: 16:59 [facility] 11/26 16:27 Order name: Urine --Ancillary; Complete Time: 16:59 [facility] 11/26 18:19 Order name: GC (GONORR/CHLAMYDIA) Probe [facility] 11/26 18:19 Order name: Wet Prep; Complete Time: 19:04 [facility] 11/26 15:54 Order name: IV Saline Lock; Complete Time: 16:02 [facility] 11/26 15:54 Order name: Labs collected and sent; Complete Time: 16:02 [facility] 11/26 16:10 Order name: Urine Dipstick-Ancillary (obtain specimen); Complete Time: 16:23 11/26 16:10 Order name: Urine Test (obtain specimen); Complete Time: 16:23 11/26 16:58 Order name: US Transvaginal Study (Probe) 11/26 18:19 Order name: Pelvic Exam Setup; Complete Time: 18:30 [facility] Administered Medications: 16:24 Drug: fentaNYL (PF) 25 mcg Route: IVP; Site: left antecubital; la1 16:53 Follow up: Response: No adverse reaction; Pain is decreased la1 16:24 Drug: Zofran 4 mg Route: IVP; Site: left antecubital; la1 16:53 Follow up: Response: No adverse reaction la1 16:24 Drug: NS 0.9% 1000 ml Route: IV; Rate: 1 bolus; Site: left antecubital; la1 16:53 Follow up: IV Status: Completed infusion la1 17:09 Drug: TORadol 30 mg Route: IVP; Site: left antecubital; la1 17:35 Follow up: Response: No adverse reaction; Pain is decreased la1 17:11 Not Given (Other Intervention Used): TORadol 30 mg IM once la1 17:32 Drug: fentaNYL (PF) 25 mcg Route: IVP; Site: left antecubital; la1 17:35 Follow up: Response: No adverse reaction; Pain is decreased la1 17:54 Drug: morphine 4 mg Route: IVP; Site: left antecubital; la1 18:32 Follow up: Response: No adverse reaction; Pain is decreased la1 18:36 Drug: Ativan 1 mg Route: IVP; Site: left antecubital; la1 18:52 Follow up: Response: No adverse reaction la1 18:41 Drug: Dilaudid 0.5 mg Route: IVP; Site: left antecubital; la1 18:52 Follow up: Response: No adverse reaction; Pain is decreased la1 18:52 Drug: Rocephin (cefTRIAXone) 250 mg Route: IM; Site: left gluteus; la1 19:16 Follow up: Response: No adverse reaction la1 18:52 Drug: AZITHromycin 1 grams Route: PO; la1 19:16 Follow up: Response: No adverse reaction la1 Disposition: 11/27 07:26 Co-signature as Attending Physician, Berny Byrnes MD I agree with the assessment and gomez plan of care. Disposition: 11/26/18 18:52 Discharged to Home. Impression: Unspecified ovarian cysts. - Condition is Stable. - Discharge Instructions: Endometriosis, Ovarian Cyst. - Prescriptions for Tylenol- Codeine #3 300-30 mg Oral Tablet - take 1 tablet by ORAL route every 6 hours As needed; 20 tablet. Zofran ODT 4 mg Oral tablet,disintegrating - place 1 tablet by TRANSLINGUAL route every 4-6 hours; 20 tablet. Flagyl 500 mg Oral Tablet - take 1 tablet by ORAL route every 12 hours for 7 days; 14 tablet. - Medication Reconciliation Form, Thank You Letter, Antibiotic Education, Prescription Opioid Use form. - Follow up: Private Physician; When: 1 - 2 days; Reason: Recheck today's complaints, Continuance of care, Re-evaluation by your physician. Signatures: Dispatcher [employer] [facility] Caroline Blue RN RN sv Anderson, Corey, MD MD cha Mickail, Joel, PA PA jmm Attema, Lee, RN RN la1 Berny Ford PA PA cp Corrections: (The following items were deleted from the chart) 11/26 16:26 16:12 TEST, SERUM+SC.LAB.BRZ ordered. [facility] 19:16 18:52 11/26/2018 18:52 Discharged to Home. Impression: Unspecified ovarian cysts. la1 Condition is Stable. Forms are Medication Reconciliation Form, Thank You Letter, Antibiotic Education, Prescription Opioid Use. Follow up: Private Physician; When: 1 - 2 days; Reason: Recheck today's complaints, Continuance of care, Re-evaluation by your physician. chirag
--- NOTE | 2018-11-26 18:52 | ER ---
Nurse's Notes [facility] Name: Jose Ugarte Age: 38 yrs Sex: Female : 1980 Arrival Date: 11/26/2018 Time: 15:43 Bed 25 Private MD: Diagnosis: Unspecified ovarian cysts Presentation: 11/26 15:45 Presenting complaint: Patient states: left side pain started today and vomiting. sv Transition of care: patient was not received from another setting of care. Onset of symptoms was November 26, 2018. Risk Assessment: Do you want to hurt yourself or someone else? Patient reports no desire to harm self or others. Care prior to arrival: None. 15:45 Method Of Arrival: Wheelchair sv 15:45 Acuity: RUPESH 3 sv 15:58 Initial Sepsis Screen: Does the patient meet any 2 criteria? No. Patient's initial la1 sepsis screen is negative. Does the patient have a suspected source of infection? No. Patient's initial sepsis screen is negative. Triage Assessment: 19:06 General: Behavior is. la1 Historical: - Allergies: 15:46 Latex, Natural Rubber; sv - PMHx: 15:46 Anxiety; Depression; Fibromyalgia; endometriosis; sv - PSHx: 15:46 Abdomen; sv - Immunization history:: Adult Immunizations up to date. - Social history:: Smoking status: Patient/guardian denies using tobacco. - Ebola Screening: : No symptoms or risks identified at this time. Screenin:57 Abuse screen: Denies threats or abuse. Nutritional screening: No deficits noted. la1 Tuberculosis screening: No symptoms or risk factors identified. Fall Risk None identified. Assessment: 15:57 General: Appears uncomfortable. Pain: Complains of pain in left upper quadrant and left la1 lower quadrant. Neuro: Level of Consciousness is awake, alert, obeys commands, Oriented to person, place, time, situation. Cardiovascular: Patient's skin is warm and dry. Respiratory: Airway is patent Respiratory effort is even, unlabored, Respiratory pattern is regular, symmetrical. GI: Abdomen is round non-distended, Reports lower abdominal pain, upper abdominal pain, nausea, vomiting. : Reports urinary frequency, since 2 weeks ago. 16:53 Reassessment: Patient appears in no apparent distress at this time. No changes from la1 previously documented assessment. Patient and/or family updated on plan of care and expected duration. Pain level reassessed. Patient is alert, oriented x 3, equal unlabored respirations, skin warm/dry/pink. 19:07 Reassessment: Patient appears in no apparent distress at this time. No changes from la1 previously documented assessment. Pt states she is still having pain but it is less than it was, awake, oriented x4. States she will call her [employer] tomorrow to get an apt. Vital Signs: 15:46 BP 111 / 75; Pulse 87; Resp 24; Temp 97.9; Pulse Ox 99% ; Weight 54.43 kg; Height 5 ft. sv 10 in. (177.80 cm); 17:02 BP 116 / 86; Pulse 74; Resp 16; Pulse Ox 98% on R/A; la1 17:56 BP 119 / 68; Pulse 76; Resp 16; Pulse Ox 98% on R/A; la1 19:06 BP 117 / 61; Pulse 76; Resp 18; Pulse Ox 98% on R/A; la1 15:46 Body Mass Index 17.22 (54.43 kg, 177.80 cm) sv ED Course: 15:43 Patient arrived in ED. as 15:46 Triage completed. sv 15:47 Arm band placed on. sv 15:48 Berny Ford PA is PHCP. cp 15:48 Berny Byrnes MD is Attending Physician. cp 15:56 Inserted saline lock: 22 gauge in left antecubital area, using aseptic technique. Blood la1 collected. 15:58 Call light in reach. Side rails up X 1. la1 15:59 Warm blanket given. Verbal reassurance given. Lights dimmed. Pulse ox on. NIBP on. jp3 16:00 Patient maintains SpO2 saturation greater than 95% on room air. jp3 16:02 Basic Metabolic Panel Sent. jp3 16:02 CBC with Diff Sent. jp3 16:02 Creatinine for Radiology Sent. jp3 16:02 Hepatic Function Sent. jp3 16:02 Lipase Sent. jp3 16:22 Radiology exam delayed due to test not completed at this time. bq 16:23 Jose Hardwick, RN is Primary Nurse. la1 16:35 CT completed. Patient tolerated procedure well. Patient moved back from CT. bq 16:37 CT Stone Protocol In Process Unspecified. EDMS 18:03 PHCP role handed off by Berny Ford PA [facility] 18:03 Edgar Oreilly PA is PHCP. [facility] 18:24 US Transvaginal Study (Probe) In Process Unspecified. EDMS 18:30 Assist provider with pelvic exam: Set up pelvic tray. Performed by Edgar WAGNER ca1 Specimens sent to lab. Patient tolerated well. 19:08 IV discontinued, intact, bleeding controlled, No redness/swelling at site. Pressure la1 dressing applied. Administered Medications: 16:24 Drug: fentaNYL (PF) 25 mcg Route: IVP; Site: left antecubital; la1 16:53 Follow up: Response: No adverse reaction; Pain is decreased la1 16:24 Drug: Zofran 4 mg Route: IVP; Site: left antecubital; la1 16:53 Follow up: Response: No adverse reaction la1 16:24 Drug: NS 0.9% 1000 ml Route: IV; Rate: 1 bolus; Site: left antecubital; la1 16:53 Follow up: IV Status: Completed infusion la1 17:09 Drug: TORadol 30 mg Route: IVP; Site: left antecubital; la1 17:35 Follow up: Response: No adverse reaction; Pain is decreased la1 17:11 Not Given (Other Intervention Used): TORadol 30 mg IM once la1 17:32 Drug: fentaNYL (PF) 25 mcg Route: IVP; Site: left antecubital; la1 17:35 Follow up: Response: No adverse reaction; Pain is decreased la1 17:54 Drug: morphine 4 mg Route: IVP; Site: left antecubital; la1 18:32 Follow up: Response: No adverse reaction; Pain is decreased la1 18:36 Drug: Ativan 1 mg Route: IVP; Site: left antecubital; la1 18:52 Follow up: Response: No adverse reaction la1 18:41 Drug: Dilaudid 0.5 mg Route: IVP; Site: left antecubital; la1 18:52 Follow up: Response: No adverse reaction; Pain is decreased la1 18:52 Drug: Rocephin (cefTRIAXone) 250 mg Route: IM; Site: left gluteus; la1 19:16 Follow up: Response: No adverse reaction la1 18:52 Drug: AZITHromycin 1 grams Route: PO; la1 19:16 Follow up: Response: No adverse reaction la1 Outcome: 18:52 Discharge ordered by . chirag 19:08 Discharged to home via wheelchair, with family. la1 19:08 Condition: stable 19:08 Discharge instructions given to patient, Instructed on discharge instructions, follow up and referral plans. medication usage, Demonstrated understanding of instructions, follow-up care, medications, Prescriptions given X 3. 19:16 Patient left the ED. la1 Signatures: Dispatcher [employer] EDCaroline Rasheed, RN RN Edgar Root PA PA jmm Quilty, Betty bq Martinez, Amelia as Attema, Lee, RN RN la1 Berny Ford PA PA cp Pisarski, Jacob 3 Sabrina Tolbert RN RN ca1
[2018-11-26] MEDS ORDERED: HYDROMORPHONE HCL 0.5 MG/0.5 ML INJ ONE (18:55)
[2018-11-26] MEDS ORDERED: LIDOCAINE 1% MPF 2 ML AMPULE ONE (18:59)
[2018-11-26] MEDS ORDERED: CEFTRIAXONE 250 MG/VIAL ONE (18:59)
[2018-11-26] MEDS ORDERED: AZITHROMYCIN 250 MG TAB ONE (18:59)
--- NOTE | 2018-11-26 19:36 | RAD REPORT ---
EXAM DESCRIPTION: US - Transvaginal Study Probe - 11/26/2018 6:21 pm CLINICAL HISTORY: Left-sided flank and pelvic pain, abnormal CT study COMPARISON: CT exam November 26 TECHNIQUE: Endovaginal sonography was performed. FINDINGS: No endometrial or myometrial suspicious finding. Uterus appears retroverted at sonography. No dominant solid or cystic right ovarian abnormality. No right adnexal mass. There is no abnormal b lood or fluid in the cul-de-sac or adnexa. A 5 centimeter complex left ovarian cystic mass is present. This is the correlate to the CT finding. At sonography there is internal echogenicity and septation. No fat component seen. Adjacent draping o varian stroma shows normal Doppler flow pattern. Torsion is not suspected. IMPRESSION: Large complex left ovarian 5 centimeter cystic mass. Normal flow seen in the left ovaria n stroma. No torsion suspected. Benign ovarian mass is still favored. Finding needs ongoing monitoring with re-evaluation in 2- 3 mon ths to evaluate for involution.
== END 2018-11-26 19:16 | disposition home or self-care (01) ==
LOC: ER 15:41
DX: N83.209 Unspecified ovarian cyst, unspecified side (principal); Z91.040 Latex allergy status; Z91.048 Other nonmedicinal substance allergy status
CPT/HCPCS: 36415; 74176; 76377; 76830; 80048; 80076; 81003; 81015; 81025; 83690; 85025; 87210; 87490; 87590; 96372; 96374; 96375; 99285; J0696; J1170; J2001; J2405; J3010; J7030